=== PATIENT | female | born 1970 | race Caucasian/White ===

== ENCOUNTER → 2016-12-20 | Outpatient (CLI) | payer OTHER ==
[~2016-12-20] VITALS: Ht 167.6 cm; Wt 82.0 kg
[~2016-12-20] MED LIST: ATORVASTATIN CA40 MG PO; AVIANE1 EACH PO; BUSPAR15 MG PO; COZAAR25 MG PO; METFORMIN HCL500 MG PO; NORCO 5/3251 TABLET PO
[2016-12-20 09:47] LABS: HEMATOCRIT 34.9 % (36.0-46.0); MCH 30.8 PG (29.0-34.0); MCV 93.6 FL (83-99); MEAN PLAT.VOLUME 8.1 uM^3 (9.5-12.4); PLATELET COUNT 575 K/uL (156-360); RBC DIS.WIDTH-CV 12.4 % (11.8-14.6); RBC DIS.WIDTH-SD 42.7 % (39-53); RED BLOOD COUNT 3.73 M/uL (3.80-5.20); WHITE BLOOD COUNT 14.4 K/uL (4.1-10.2)
[2016-12-20 09:53] LABS: INTER. NORMALIZED RATIO 1.2
[2016-12-20 09:56] LABS: PTT 27.4 SEC (25-37)
[2016-12-20 10:15] LABS: POINT-OF-CARE METER ID UU14174212
== END | disposition home or self-care (01) ==
LOC: OPR 09:07 → EDSTATUS 13:00 → OPR 13:00
PROVIDERS: Surgery
PROC: 0D9W30Z Drainage of Peritoneum with Drainage Device, Percutaneous Approach (ICD-10-PCS; principal; 2016-12-20)
DX: K68.11 Postprocedural retroperitoneal abscess (principal); Z90.49 Acquired absence of other specified parts of digestive tract; Z79.84 Long term (current) use of oral hypoglycemic drugs
CPT/HCPCS: 77012; 82948; 85027; 85610; 85730; 87070; 87075; 87076; 87185; 87205; C1769; J3010